=== PATIENT | male | born 2000 | race Caucasian/White ===

== ENCOUNTER → 2021-05-14 14:25 | Outpatient (CLI) | payer OTHER, SELFPAY | PROVIDERS: PCP Pediatrics; Visit Provider Nurse Practitioner | DX: Z20.822 Contact with and (suspected) exposure to COVID-19 (principal) | CPT/HCPCS: C9803; U0003; U0005 ==

== ENCOUNTER 2021-10-16 05:31 | Emergency (ER) | payer BC, OTHER, SELFPAY ==
[2021-10-16 05:32] VITALS: BP 126/77; PULSE 75; RESP 17; TEMP 36.8; O2SAT 100; BMI 23.6
[2021-10-16 05:38] VITALS: BMI 23.6
--- NOTE | 2021-10-16 05:51 | XR_ITS ---
PROCEDURE INFORMATION: Exam: XR Left Foot Exam date and time: 10/16/2021 5:58 AM Age: 21 years old Clinical indication: Injury or trauma; Other: Kicked door; Blunt trauma; Toes; Left lesser toe(s); Additional info: Poss FX 5th toe, kicked door. TECHNIQUE: Imaging protocol: Radiologic exam of the Left foot. Views: 3 or more views. COMPARISON: No relevant prior studies available. FINDINGS: Bones/joints: Fracture, 5th proximal phalanx. Soft tissues: Normal. IMPRESSION: Fracture, 5th proximal phalanx.
--- NOTE | 2021-10-16 06:15 | HMH.EDLOEX ---
ED Disposition Clinical Impression: Fracture of toe Qualifiers: Encounter type: initial encounter Toe: lesser toe Fracture type: closed Phalanx: proximal Fracture alignment: displaced Laterality: left Qualified Code(s): S92.512A - Displaced fracture of proximal phalanx of left lesser toe(s), initial encounter for closed fracture Disposition: Home, Self-Care Condition on Discharge: Good Instructions: DI for Toe Fracture Additional Instructions: see dr fuller at 0800 Referrals: Regan Serrano [Primary Care Provider] - Yue Fuller DPM [Staff Physician] - - Critical Care Critical Care Time: No Attestation: On , the high probability of a clinically significant, sudden or life threatening deterioration of the following system(s) required my full and direct attention, intervention and personal management. The time I documented below is in addition to time spent performing reported procedures but includes the following listed in this critical care notation. Medical Decision Making - Medical Records Medical records reviewed: Yes: I reviewed the patient's medical records. - [place] Inquiry Pt receiving controlled substance: No Vital Signs: 10/16/21 05:32 Temperature 98.3 F Temperature Source Oral Pulse Rate [Right] 75 Respiratory Rate 17 Blood Pressure [Right Arm] 126/77 Blood Pressure Mean [Right Arm] 93 Blood Pressure Source [Right Arm] Automatic Cuff 02 Sat by Pulse Oximetry 100 Oxygen Delivery Method Room Air - Lab Data Lab results reviewed: Yes: I reviewed the patient's lab results. Orders (Tests/Meds): ORDERS Category Date Time Status XR foot LT min 3V Stat Exams 10/16/21 05:51 Taken - Radiology Data #1 Image(s): Foot/Toes Image Reviewed: Yes I reviewed the patient's radiology image Preliminary Findings: Abnormal (prox fracture) - Physician Consults Physician Consulted: george Reason -: Pt condition Medical Decision Narrative: acute fx lt fifth toe and will see dr fuller this am Lower Extremity Injury HPI - General Chief Complaint: Extremity Injury, Lower Stated Complaint: Possible broken toe left foot Time Seen by Provider: 10/16/21 06:00 Mode of Arrival: Family Vehicle Source of Information: Patient, Parent(s), Medical Record Limitations: No Limitations Description of Symptoms (Recalled from ER Triage Doc. by RN): Pt c/o left 5th toe pain after striking it barefoot against a desk. 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 Redness noted to toe. 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 - History of Present Illness HPI Narrative: acute injury lt fifth toe complaint: foot injury Onset (ago): minute(s) Injury: Left: toes Type of Injury: blunt Place: home Severity: moderate Context: direct blow Associated symptoms: snap/pop sensation, ambulatory, other (deformity) Other symptoms: none - Related Data Home Medications Medication Instructions Recorded Confirmed Lisdexamfetamine Dimesylate 70 mg PO DAILY 10/16/21 10/16/21 [Vyvanse] Allergies Allergy/AdvReac Type Severity Reaction Status Date / Time No Known Allergies Allergy Verified 10/16/21 05:[address] [facility] History - Hepatitis A Screen Attestation statement:: This patient has been screened for Hepatitis A risk factors. I have reviewed the patient's past medical history: Yes ROS Obtained: Yes All systems reviewed & no additional complaints - Constitutional Constitutional: Denies fever(s) - Eyes Eyes: Denies change in vision - ENT Ears, Nose, Mouth, and Throat: Denies sore throat - Cardiovascular Cardiovascular: Denies chest pain - Respiratory Respiratory: Denies shortness of breath - Gastrointestinal Gastrointestingal: Denies: abdominal pain - Genitourinary Male Genitourinary: Denies hematuria - Musculoskeletal Musculoskeletal: Reports as per HPI, Reports joint pain, Reports deformity, Reports joint swelling, Reports limited range of motion - Integumentary/Breasts Skin/Breast: Denies r
[2021-10-16 06:36] VITALS: BP 123/71; PULSE 69; RESP 16; TEMP 36.7; O2SAT 97
== END 2021-10-16 06:41 | disposition home or self-care (01) ==
PROVIDERS: Emergency Provider Emergency Medicine; PCP Pediatrics
DX: S92.512A Displaced fracture of proximal phalanx of left lesser toe(s), initial encounter for closed fracture (principal); W22.8XXA Striking against or struck by other objects, initial encounter; Z79.899 Other long term (current) drug therapy
CPT/HCPCS: 73630; 99283

== ENCOUNTER → 2021-10-16 08:39 | Outpatient (CLI) | payer BC, OTHER, SELFPAY ==
--- NOTE | 2021-10-16 08:44 | XR_ITS ---
FINAL REPORT CLINICAL HISTORY: Fracture evaluation COMPARISON: Earlier the same day FINDINGS: LEFT FOOT Three weight-bearing views of the left foot demonstrate improvement in alignment of the 5th proximal phalanx fracture. There is improvement in lateral angulation of the 5th digit. The visualized joint spaces are normally aligned. The soft tissues are unremarkable. IMPRESSION: Improved alignment of the 5th proximal phalanx fracture with improvement in lateral angulation of the 5th digit. Reviewed, Interpreted and Dictated by Mir Hoyos III, MD Transcribed by Samra Hernandez Authenticated and [facility]
== END ==
PROVIDERS: PCP Pediatrics; Visit Provider Podiatrist
DX: S92.502A Displaced unspecified fracture of left lesser toe(s), initial encounter for closed fracture (principal); T14.8XXA Other injury of unspecified body region, initial encounter
CPT/HCPCS: 73630

== ENCOUNTER 2021-10-16 08:54 | Outpatient (RCR) | payer BC, OTHER, SELFPAY | END 2021-10-16 09:45 | disposition home or self-care (01) | LOC: PT 08:54 | PROVIDERS: Visit Provider Podiatrist | DX: S92.512D Displaced fracture of proximal phalanx of left lesser toe(s), subsequent encounter for fracture with routine healing (principal) | CPT/HCPCS: 97760 ==

== ENCOUNTER 2024-12-26 09:04 | Emergency (ER) | payer OTHER, SELFPAY ==
[2024-12-26 09:10] VITALS: BP 144/95; PULSE 117; RESP 18; TEMP 37.1; O2SAT 99; BMI 30.7
--- NOTE | 2024-12-26 09:11 | PC.NURSE ---
dr olivas at bedside
--- OUTSIDE RECORDS SUMMARY | 2024-12-26 09:18 | XMS_ITS | Clinical Summary ---
[facility] Organization [facility] Address [address] [place] [address] Care Team Providers Care Horticultural Technical Officer Name Role Phone Provider, No Known Primary Care Provider Unavail able Allergies No known active allergies Medications VYVANSE 70 MG capsule TK 1 C PO QAM 0 02/14/2019 Active Social History Tobacco Use Types Packs/Day Years Used Date Smoking Tobacco: Every Day Alcohol Use Standard Drinks/Week Comments No 0 (1 standard drink = 0.6 oz pur e alcohol) AUDIT-C Answer Date Recorded Frequency of Alcohol Consumption Never 02/24/2019 Average Number of Drinks Not on file 019 Frequency of Binge Drinking Not on file 11/2018 Abuse Screen Answer Date Recorded Unsafe at Home or Work/School Not on file Feels Threatened by Someone? Not on file 03/2023 Does Anyone Keep You from Co ntacting Others or Doint Things Outside the Home? Not on file 01/28/2023 Physical Sign of Abuse Present Not on file 1 Housing Stability Answer Date Recorded Current Living Arrangements Not on file 01/17 Potentially Unsafe Housing Conditions Not on malachi e 01/28/2023 Family and Community Support Answer Thang e Recorded Help with Day-to-Day Activities Not on file 01/28/2023 Lonely or Isolated Not on file 01/28/2023 Employment Answer Date Recorded Do you want help finding or keeping work or a brian b? Not on file 01/28/2023 Disabilities Answer Date Recorded Concentrating, Remembering, or Making Decisions Difficulty Not on file 01/28/2023 Doing Errands Independently Difficulty Not on fi le 01/28/2023 Education Answer Date Recorded Help with school or training? Not on file 10 /03/2023 Preferred Language Not on file 01/28/2023 Sex and Gender Information Value Date Recorded Sex Assigned at Not on file Legal Sex Male 12:49 PM EST Gender Identity Not on file Sexual Orientation Not on file Last Filed Vital Signs Vital Sign Reading Time Taken Comments Blood Pressure 118/72 02/24/2019 1:00 PM EST Pulse 89 02/24/2019 1:00 PM EST Temperature 37 C (98.6 F) 02/24/2019 1:00 PM EST Respiratory Rate 12 02/24/2019 1:00 PM EST Oxygen Saturation 98% 02/24/2019 1:00 PM EST Inhaled Oxygen Concentration - - Weight 70.9 kg (156 lb 3.2 oz) 02/24/2019 1:00 P M EST Height 182.9 cm (6') 02/24/2019 1:00 PM EST Body Mass Index 21.18 02/24/2019 1:00 PM EST Plan of Treatment Health Maintenance Due Date Last Done Comments ANNUAL PHYSICAL 02/24/2019 HEPATITIS C SCREENING 02/24/2019 TDAP/TD VACCINES (1 - Tdap) 09/25/2019 COVID-19 Vaccine ( - 2023-2 5 season) 2024 INFLUENZA VACCINE 01/17/2025 MENINGOCOCCAL B VACCINE Aged Out No l onger eligible based on patient's age to complete this topic Pneumococcal Vaccine 0-49 Aged Out No longer eligible based on patient's age to complete this topic Insurance PPO Care Teams Horticultural Technical Officer Relationship Specialty Start Date End Date Provider, [place] [address] PCP - General 02/24/19
--- OUTSIDE RECORDS SUMMARY | 2024-12-26 09:18 | XMS_ITS | Clinical Summary ---
Author Organization Healthcare Address [address] [id number] Care Team Providers Care Housemaid Name Role Phone Regan Serrano MD Primary Care Provider [phone] Allergies No known active allergies Medications methocarbamol (Robaxin) 500 MG tablet Take 1 tablet (500 mg total) by mouth 4 (four) times a day if needed for muscle spasms for up to 10 days. 30 tablet 07/30/2021 Active Social History Tobacco Use Types Packs/Day Years Used Date Smoking Tobacco: Never Assessed Sex and Gender Information Value Date Recorded Sex Assigned at Not on file Legal Sex Male 9:43 PM EDT Gender Identity Not on file Sexual Orientation Not on file Last Filed Vital Signs Vital Sign Reading Time Taken Comments Blood Pressure 119/64 07/30/2021 1:07 AM EDT Pulse 76 07/30/2021 1:07 AM EDT Temperature 36.8 C (98.2 F) 07/30/2021 1:07 AM EDT Respiratory Rate 16 07/30/2021 1:07 AM EDT Oxygen Saturation 99% 07/30/2021 1:07 AM EDT Inhaled Oxygen Concentration - - Weight 70.8 kg (156 lb 1.4 oz) 07/29/2021 10:16 PM EDT Height 180.3 cm (5' 11 ) 07/29/2021 10:16 PM EDT Body Mass Index 21.77 07/29/2021 10:16 PM EDT Plan of Treatment Health Maintenance Due Date Last Done Comments [facility]-Depression Screening 2000 [facility]-Infant/Child/Adol SDOH Screenings 2000 [facility]- SDOH Screenings 2018 [facility]-Adult SDOH Screenings 2018 [facility]-DTaP,Tdap,and Td Vaccines (7 - Td or Tdap) 09/26/2022 09/26/2012, 08/13/2005, 03/27/2002, Additional history exists [id number]-83 Vaccine ( - season) 2023 [facility]-Influenza Vaccine (#1) 12/18/202412/28, 03/24/2019, 02/04/2018, Additional history exists [facility]-Zoster Vaccines (1 of 2) 2050 06/13/2008, 09/27/2001 [facility]-Hepatitis B Vaccines Completed 001, 02/28/2001, 2000, Additional history exists [facility]-HIB Vaccines Completed 03/27/2002, , 02/18/2001, Additional history exists [facility]-IPV Vaccines Completed 08/13/2005, 02/2002, 02/28/2001, Additional history exists [facility]-Varicella Vaccines Completed 06/13/2008, 2001 [facility]-Hepatitis A Vaccines Completed 12/27/2009, 05/21 HPV Vaccines Completed 04/21/2013, 11/18, 09/26/2012 [facility]-Pneumococcal Vaccine: Pediatrics (0 to 5 Years) and At-Risk Patients (6 to 49 Years) Aged Out No longer eligible based on patient's age to complete this topic [facility]-Rotavirus Vaccines Aged Out No lo nger eligible based on patient's age to complete this topic Insurance [facility] CIGNA CIGNA Pending sale to [facility] [place] [facility] [address] [address] Care Teams Housemaid Relationship Specialty Start Date End Date Regan Serrano MD [facility] [place] [address] PCP - General 07/29/21
--- OUTSIDE RECORDS SUMMARY | 2024-12-26 09:18 | XMS_ITS | Clinical Summary ---
Author Organization [facility] Address [address] [place] [id number] Phone [email or web address] Care Team Providers Care Supervisor Partial Denture Department Name Role Phone Unavailable Primary Care Provider Unavailabl e Allergies No known active allergies Medications Vyvanse 70 MG capsule Take 70 mg by mouth 1 (one) time each day in the morning. 09/22/2021 Active traZODone (DESYREL) 100 MG tablet Take 1 tablet by mouth every night. 05/21/2020 Active Active Problems Problem Noted Date Diagnosed Date Return to work evaluation 10/22/2021 Social History Tobacco Use Types Packs/Day Years Used Date Smoking Tobacco: Every Day Smokeless Tobacco: Never Intimate Partner Violence Answer Date R ecorded Insults You Not on file 06/18/2021 Threatens You Not on file 06/18/2021 Screams at You Not on file 06/18/2021 Physically Hurt Not on file 06/18/2021 Intimate Partner Violence Score Not on file 06/18/2021 Depression Answer Date Recorded PHQ Total Score Not on file 10/22/2022 Stress Answer Date Recorded Stress in your Life Not on file 02/23/2024 Dealing with Stress 3 02/23/2024 Sex and Gender Information Value Date Recorded Sex Assigned at Not on file 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 Gender Identity Not on file Sexual Orientation Not on file Last Filed Vital Signs Vital Sign Reading Time Taken Comments Blood Pressure 106/70 10/21/2021 4:33 PM EDT Pulse 105 10/21/2021 4:33 PM EDT Temperature 35.9 C (96.6 F) 10/21/2021 4:33 PM EDT Respiratory Rate 18 10/21/2021 4:33 PM EDT Oxygen Saturation 96% 10/21/2021 4:33 PM EDT Inhaled Oxygen Concentration - - Weight 72.7 kg (160 lb 4.8 oz) 06/18/2021 12:10 PM EST Height 180.3 cm (5' 11 ) 06/18/2021 12:10 PM EST Body Mass Index 22.36 06/18/2021 12:10 PM EST Plan of Treatment Health Maintenance Due Date Last Done Comments Dental Cleaning/Exam 2000 Tetanus Diphtheria and Pertussis Immunization (7 - Td or Tdap) 09/26/2022 09/26/2012, 08/13/2005, 03/27/2002, Additional history exists Covid-19 Immunization ( season) 2024 Influenza Immunization (#1) 12/18/202412/18, 03/24/2019, 02/04/2018, Additional history exists Hepatitis B Immunization Completed 001, 02/28/2001, 2000, Additional history exists Pneumococcal: Ped (0 to 5 Yrs) and At-Risk Member (6 to 64 Yrs) Aged Out 12/26/2001, 04/04/2001, 02/28/2001, Additional history exists No longer eligible based on patient's age to complete this topic HIB Immunization Completed 03/27/2002, , 02/18/2001, Additional history exists Polio Immunization Completed 08/13/2005, 0 09/27/2001, 02/28/2001, Additional history exists Varicella Immunization Completed 06/13/2008, 2001 Hepatitis A Immunization Completed 12/27/2009, 05/21 HPV Immunization Completed 04/21/2013, , 09/26/2012 Meningococcal Immunization Completed 12/18/2016, Men B Immunization Completed 04/29/2017, 03/26/2017 Insurance OPT OUT NO COPAY NB
--- NOTE | 2024-12-26 09:22 | ED_ITS ---
Discharge Plan Disposition Patient Disposition: Home, Self-Care Prescriptions Prescriptions: New doxycycline hyclate 100 mg capsule 100 mg PO BID 7 Days Qty: 14 0RF No Action prednisone 20 mg tablet 20 mg PO BID Qty: 10 0RF Rx Instructions: administer with food or milk Referrals Follow up/Referrals: Elisha Solomon MD [Referring, Dermatology] - See instructions Regan Serrano [Primary Care Provider, Medical] - See instructions Activity Restrictions/Add. Instructions Additional Instructions/Restrictions: You were given an injection of antibiotics and are being sent with a 7-day course of doxycycline for treatment of possible sexually-transmitted infection. If there are any abnormal results on your sexually-transmitted infection testing today, we will contact you for an update and let you know if any additional treatment is necessary. If your testing comes back positive for any sexually transmitted infections, your sexual partner(s) will also need to be treated. I do encourage you to use protection, such as condoms, when engaging in sexual activity. These lesions in your groin can also be related to an underlying issue with sweat glands, and I am referring you to a industrial roofer helper for this reason. I encourage you to call their office to schedule an appointment. If you develop any new or worsening symptoms, or if you become concerned for your health for any reason, return to the emergency department for evaluation Clinical Impressions Clinical Impression: Lesion of penis Print Language Print Language: Kiswahili Discharge ED Provider: Rohit Plummer Adult HPI General Chief complaint: Skin/Abscess/Foreign Body Stated complaint: Boil on Private Area Time Seen by Provider: 12/26/24 09:11 Mode of Arrival: Ambulatory Source of Information: Patient Description of Symptoms (Recalled from ER Triage Doc. by RN): pt reports red, swollen hot area to left side of penis. denies painful urination. reports new sexual partner. History of Present Illness HPI narrative: Hussain Moulton is a 24-year-old male who is otherwise healthy who presents to the emergency department for complaints of draining lesion to his penis. Patient states that yesterday, he noticed redness and swelling to the top of his penis as well as a wound on the bottom of his penile shaft that opened and started draining pus. He does report a recently new sexual partner but denies any burning with urination or penile discharge. Patient does state that he has had similar lesions appear in the inguinal folds before and his dad had similar type things but they have never been on the penis before. Related Data Previous Rx's ?Medication ?Instructions ?Recorded prednisone 20 mg tablet 20 mg PO BID #10 tabs doxycycline hyclate 100 mg capsule 100 mg PO BID 7 day s #14 caps 12/26/24 Allergies Allergy/AdvReac Type Severity Reaction Status Date / Time No Known Allergies Allergy Verified 12/02/24 11:28 [facility] Disclaimer: The information contained in this section may have been updated after the pat ient was seen, as this information can be updated by other users. Social History Smoking Status: Current every day smoker tobacco type: e-cigarettes alcohol intake: current alcohol intake frequency: holidays/special occasions only current occupational status: employed Travel in the last 8 weeks?: None Have you lived/traveled outside US in past 30 days?: No Contact w/someone who lives/traveled outside US past 30 days?: No Exposure to someone with infectious disease in past 14 days?: No Do you have a fever (greater than 100.4 F or 38 C)?: No Have you tested positive for COVID-19?: No Exposed to someone with COVID-19 in past 14 days?: No Do you have a sore throat?: No Do you have a cough?: No Do you have any weakness?: No Do you have any diarrhea?: No Are you experiencing any unusual bleeding?: No Do you have any muscle aches/pain?: No Do you have any abdominal pain?: No Are you experiencing loss of taste or smell?: No Other Medical History Have you received the Flu Vaccine for this season: No Have you received the Pneumonia Vaccine: No ROS Obtained: Yes Systems reviewed as appropriate & no additional complaints except as documented Physical Exam General General appearance: alert and in no apparent distress Head Head exam: atraumatic Eye Eye exam: Present normal appearance ENT ENT exam: Present normal external ear exam Neck Neck exam: Present full ROM Chest Chest inspection: Present symmetric chest wall rise Respiratory Respiratory exam: Present normal lung sounds bilaterally; Absent respiratory distress Cardiovascular Cardiovascular exam: Present regular rate and normal rhythm Abdominal Exam Abdominal exam: Present soft; Absent tenderness or guarding exam: Present normal testicular lie, circumcised and other (Erythema and swelling along the dorsal aspect of the penis and a small area of blistering on the ventral aspect of the penile shaft but no active bleeding and no pus noted); Absent urethral discharge or scrotal swelling Extremities Exam Extremities exam: Present normal inspection Back Exam Back exam: Present normal inspection Neurological Exam Neurological exam: Present alert and oriented X3 Psychiatric Psychiatric exam: Present normal affect Skin Skin exam: Present warm and dry Medical Decision Making Medical Records Screening: Per USPSTF and CDC recommendations, given the prevalence of disease in our region, it is our hospital?s policy to screen for HIV and viral Hepatitis for all patients aged 18 and over and those with ongoing risk factors. [place] Inquiry Pt receiving controlled substance: No Vital Signs: 12/26/24 09:10 12/26/24 09:27 Temperature 98.8 F Temperature Source Oral Pulse Rate 96 H Pulse Rate [Radial] 117 H Respiratory Rate 18 Blood Pressure 126/87 Blood Pressure [Right Arm] 144/95 H Blood Pressure Mean [Right Arm] 111 Blood Pressure Source [Right Arm] Automatic Cuff Blood Pressure Position [Right Arm] Sitting 02 Sat by Pulse Oximetry 99 96 Oxygen Delivery Method Room Air Lab Data Lab Results 12/26/24 09:42: Urine Color Yellow, Urine Appearance Clear, Urine pH 6.0, Ur Specific [place] >= 1.030, Urine Protein Negative, Urine Glucose (UA) Negative, Urine Ketones Negative, Urine Blood Negative, Urine Nitrate Negative, Urine Bilirubin 1+ A, Urine Urobilinogen 0.2, Ur Leukocyte Esterase Negative Orders (Tests/Meds): ED MEDICATIONS Discontinued Medications Generic Name Dose Route Start Last Admin Trade Name Freq PRN Reason Stop Dose Admin Ceftriaxone Sodium 500 mg 12/26/24 09:17 12/26/24 09:44 Ceftriaxone 500mg Vial IM 12/26/24 09:18 500 mg ONCE ONE Administration Lidocaine HCl 0 ml 12/26/24 09:17 12/26/24 09:43 Lidocaine 1% 5ml Pf Vial IM 12/26/24 09:18 1 ml ONCE ONE Administration ORDERS Category Date Time Status HIV Combo Stat Lab 12/26/24 09:30 Received Hepatitis C Ab Qual. W/ RFX Stat Lab 12/26/24 09:30 Received RPR W/RFX Titers Stat Lab 12/26/24 09:30 Received UA [Urinalysis and Microscopic] Stat Lab 12/26/24 09:42 Results Urine Chlam/Gono/Trich ([facility]) Stat Lab 12/26/24 09:42 Received Medical Decision Narrative: Hussain Moulton is a 24-year-old male who is otherwise healthy who presents to the emergency department for complaints of draining lesion to his penis. Patient states that yesterday, he noticed redness and swelling to the top of his penis as well as a wound on the bottom of his penile shaft that opened and started draining pus. He does report a recently new sexual partner but denies any burni ng with urination or penile discharge. Patient does state that he has had similar lesions appear in the inguinal folds before and his dad had similar type things but they have never been on the penis before. On arrival, patient is hemodynamically stable, afebrile, breathing comfortably on room air. Physical exam, stated above, reveals an overall well-appearing male in no distress. Patient genitourinary exam does show swelling and erythema of the dorsal aspect of the penis proximal to the meatus. There is no significant tenderness in this area. He has a lesion on the ventral aspect of his penile shaft proximal to the meatus that appeared to have ruptured but is not currently draining any pus. No urethral drainage is noted. Original diagnosis includes, but is not limited to: Sexually-transmitted infection, urinary tract infection, balanitis, HIV, hidradenitis suppurativa, cellulitis, among others. The most morbid conditions were considered and workup was based on these. Workup in the emergency department included: HIV screening, RPR, urinalysis, urine gonorrhea chlamydia and trichomonas. Patient said that he would like to be proactively treated for any sexually transmitted infections. Will administer 500 mg of IM Rocephin at this time. Will take over 24 hours for patient's STI testing to be completed. Discussed with patient that we will call him with any abnormal results at that any sexual partners will need to be treated if results are positive. I did encourage him to refrain from sexual activity until the results of his testing is back and encouraged him to use protection when engaging sexual activity in the future. This could be an element of balanitis versus STI versus hidradenitis suppurativa and will refer him to dermatology given he has had recurrent issues with lesions similar to this appearing in his groin with a likely familial component given his father had similar type issues. Sending patient a 7 course of doxycycline to complete his STI prophylaxis treatment. Return precautions were given. All questions were answered. He was then discharged from the emergency department in stable condition. Critical Care Critical Care Time Critical Care Time: No
[2024-12-26 09:27] VITALS: BP 126/87; PULSE 96; O2SAT 96
[2024-12-26] MEDS: LIDOCAINE 1% 5ML PF VIAL IM (09:43)
[2024-12-26 09:46] LABS: Microscopic, Urine URINE MICROSCOPIC (MICROSCOPIC)
[2024-12-26 09:58] LABS: Color,Urine YELLOW (Yellow); Glucose,Urine (UA) Negative (Negative); Ketones,Urine Negative (Negative); Leukocyte Esterase,Urine Negative (Negative); PH,Urine 6.0 (5.0-8.5); Protein,Urine Negative (Negative); Urobilinogen,Urine 0.2 EU/dl (0.2)
[2024-12-26 10:06] LABS: Bilirubin,Urine 1+ (Negative)
--- NOTE | 2024-12-26 10:07 | PC.NURSE ---
dr marie at bedside to update pt
[2024-12-26 10:08] LABS: Specific Gravity, Urine >= 1.030 (1.005-1.030)
[2024-12-26 10:16] VITALS: BP 126/87; PULSE 91; RESP 18; TEMP 36.7; O2SAT 98
[2024-12-26 11:00] LABS: Hepatitis C Ab Qual. W/ RFX NEGATIVE (Negative)
[2024-12-26 16:17] LABS: RPR W/RFX Titers Nonreactive (Nonreactive)
== END 2024-12-26 10:17 | disposition home or self-care (01) ==
PROVIDERS: Emergency Provider Student in an Organized Health Care Education/Training Program; PCP Pediatrics
DX: N48.9 Disorder of penis, unspecified (principal)
CPT/HCPCS: 81001; 86592; 86803; 87389; 87491; 87591; 87661; 96372; 99284; J0696; J2003